=== PATIENT | male | born 1950 | race Caucasian/White ===

== ENCOUNTER 2018-04-03 07:24 | Day surgery (SDC) | payer MEDICARE, OTHER ==
[2018-04-03 09:09] VITALS: TEMP 97.4; O2SAT 97
[2018-04-03 09:14] VITALS: BP 111/63; PULSE 65; RESP 66
== END 2018-04-03 09:25 | disposition home or self-care (01) | DRG 951 ==
LOC: SURG 07:24
PROVIDERS: ATTEND Surgery
DX: Z12.11 Encounter for screening for malignant neoplasm of colon (principal); Z86.010 Personal history of colon polyps; D12.2 Benign neoplasm of ascending colon; D12.0 Benign neoplasm of cecum
CPT/HCPCS: J3010; J2001; J2704

== ENCOUNTER 2019-02-10 09:13 | Observation (INO) | payer OTHER, MEDICARE | END 2019-02-11 13:53 | disposition home or self-care (01) | LOC: ED 09:13 → ACUTE CARE 13:31 ==